=== PATIENT | male | born 1935 | race African-American/Black ===

== ENCOUNTER 2016-12-30 11:14 | Emergency (ER) | payer MEDICARE, MEDICAID ==
[~2016-12-30] VITALS: Ht 177.8 cm; Wt 81.6 kg
[2016-12-30 11:17] VITALS: BP 139/64
--- NOTE | 2016-12-30 13:13 | Diagnostic Imaging Report ---
Indications: Percutaneous gastrostomy tube replacement Technique: Portable AP view of the abdomen with administration of water soluble contrast through gastrostomy tube Findings: Comparison: None Percutaneous gastrostomy tube is present in the stomach. Injected contrast opacifies lumens of the tube, stomach both proximal and distal to the tube, and proximal small bowel. All are normal in caliber. No extraluminal contrast extravasation is demonstrated. Abdomen and pelvis incompletely imaged. There is mild diffuse gaseous distention of small bowel, mild gaseous and fecal distention of colon. No loops are dilated out of proportion to any other.. Degenerative changes are present in the lumbar spine. IMPRESSION: Percutaneous gastrostomy tube in stomach. No evidence of obstruction or extravasation. Enterocolonic changes as described compatible with diffuse ileus Degenerative spondylosis
[2016-12-30 14:39] VITALS: BP 142/61
[2016-12-30 14:40] VITALS: BP 139/64
--- NOTE | 2016-12-31 14:56 | Emergency Room Report ---
History of Present Illness General Chief Complaint: Malfunctioning Gastric Tube Source: EMS Present Illness HPI 81-year-old male presents to ED for G-tube placement. Per nursing staff the G- tube was pulled out this morning at the halfway. upon arrvial patient is not in distress. patient has dementia and is unable to provide any additional info. no fevers or chills. no N/V. no other aggravating or relieving factors. no other associated symptoms. Allergies: Coded Allergies: No Known Allergies (Unverified , 12/30/16) Patient History Past Medical History: HTN, dementia Past Surgical History: other - Gtube Pertinent Family History: none Social History: Denies: alcohol use, drug use, smoking Immunizations: UTD Reviewed Nursing Documentation: PMH: Agreed, PSxH: Agreed Nursing Documentation-PMH Hx Cardiac Problems: No - ANEMIA Hx Hypertension: Yes Hx Neurological Problems: Yes - DEMENTIA Hx Cerebrovascular Accident: Yes - GRED, G TUBE Review of Systems All Other Systems: limited Physical Exam Vital Signs Date Time Temp Pulse Resp B/P Pulse Ox O2 Delivery O2 Flow Rate FiO2 12/30/16 11:07 97.5 80 20 94 12/30/16 11:07 142/67 Nasal Cannula 2.0 Sp02 EP Interpretation: reviewed, normal General Appearance: non-toxic, other - dementia Head: normocephalic Eyes: bilateral eye PERRL, bilateral eye normal inspection ENT: hearing grossly normal Neck: normal inspection Respiratory: chest non-tender, lungs clear, normal breath sounds, speaking full sentences Cardiovascular #1: regular rate, rhythm, no edema Gastrointestinal: normal bowel sounds, non tender, soft, non-distended, no guarding, no rebound, other - gtube site C/d/I patent Rectal: deferred Genitourinary: no CVA tenderness Musculoskeletal: normal inspection Neurologic: other - dementia Psychiatric: other - dementia Skin: normal inspection Lymphatic: normal inspection Procedures Additional Procedure Procedure Narrative G-tube placement Patient placed on stretcher. Old G-tube is removed by deflating the balloon using syringe. G-tube site is inspected with no contraindications to G-tube placement. G-tube slowly inserted until resistance is met; G-tube balloon is slowly filled with 20 mL of normal saline and slowly retracted back until resistance is met. G-tube placement is confirmed with KUB study using Gastrografin Medical Decision Making Diagnostic Impression: Primary Impression: Malfunction of gastrostomy tube ER Course Hospital Course 81-year-old male presents to ED for G-tube placement. Pulled out G-tube at halfway Clinical course Patient placed on stretcher. After initial history and physical I replaced G- tube and inflate the balloon. G-tube placement confirmed with KUB study. Patient remained stable without any signs of distress. halfway called and patient subsequently discharged back to facility. Dr Modi made aware that G-tube was successfully replaced and patient return to facility Diagnosis - malfunction of G tube stable and discharged back to facility. Followup with PMD. Return to ED if symptoms recur or worsen CT/MRI/US Diagnostic Results CT/MRI/US Diagnostic Results : Imaging Test Ordered: KUB Impression Gtube in place Last Vital Signs Date Time Temp Pulse Resp B/P Pulse Ox O2 Delivery O2 Flow Rate FiO2 12/30/16 14:40 97.4 82 19 139/64 96 Nasal Cannula 2.0 Status: improved Disposition: [facility] Condition: Stable Referrals: NON PHYSICIAN Patient Instructions: Gastrostomy Tube Home Guide, Adult DELFINO FLOYD M.D. December 31, 2016 14:56
== END 2016-12-30 14:42 ==
LOC: EDBD 11:14 → EMR 11:36
DX: K94.23 Gastrostomy malfunction (principal); F03.90 Unspecified dementia, unspecified severity, without behavioral disturbance, psychotic disturbance, mood disturbance, and anxiety; I10 Essential (primary) hypertension; K21.9 Gastro-esophageal reflux disease without esophagitis
CPT/HCPCS: 43760; 74000; 99283; Q9963